=== PATIENT | female | born 1985 | race Caucasian/White ===

== ENCOUNTER → 2023-07-03 10:28 | Outpatient (BNVA) | payer OTHER, SELFPAY | PROVIDERS: PCP Nurse Practitioner; Visit Provider Nurse Practitioner | DX: R93.89 Abnormal findings on diagnostic imaging of other specified body structures (principal); R09.1 Pleurisy; Z01.818 Encounter for other preprocedural examination | CPT/HCPCS: 71046; 81025 ==